=== PATIENT | female | born 1955 | race Caucasian/White ===

== ENCOUNTER → 2017-03-19 | Outpatient (CLI) | payer MEDICAID ==
[~2017-03-19] MED LIST: ASPIRIN81 M1 PO; CIPRO500 MG PO; CIPRO750 MG PO; COMBIVENT1 ARO IH; CORDROL20 MG; DELTASONE20 MG PO; DUONEB 3 MG/3 ML3 M1; HABITROL14 MG/24 H TD; HYCODAN,HYDROME10 ML PO; HYCODAN/HYDROMET5 ML PO; LORTAB 7.5/5001 TA1 PO; PROVENTIL0.09 MG/A1 INH; SYMBICORT1 AER; SYMBICORT1 AER PO; XANAX0.5 MG PO; ZITHROMAX250 MG PO
[2017-03-19 07:34] LABS: BASO # 0.1 10*3/uL (0.0-0.1); BASO % 0.7 % (0.0-1.0); EOS # 0.2 10*3/uL (0.0-0.4); EOS % 3.2 % (1.0-4.0); HEMOGLOBIN 14.6 g/dl (12.0-16.0); LYMPH # 3.2 10*3/uL (1.3-4.4); LYMPH % 44.1 % (27.0-41.0); MEAN CELL VOLUME 93.4 fl (81.0-99.0); MEAN CORPUSCULAR HGB CONC 33.2 g/dl (33.0-37.0); MEAN PLATELET VOLUME 9.8 fl (9.6-12.3); MONO # 0.6 10*3/uL (0.1-1.0); MONO % 7.6 % (3.0-9.0); NEUT # 3.2 10*3/uL (2.3-7.9); NEUT % 44.3 % (47.0-73.0); PLATELET COUNT AUTOMATED 291 10*3/uL (130-400); RED BLOOD COUNT 4.71 10*6/uL (4.10-5.10); RED CELL DISTRI WIDTH 12.1 % (0-14.5); WHITE BLOOD COUNT 7.3 10*3/uL (4.8-10.8)
[2017-03-19 07:42] LABS: ALBUMIN 3.8 gm/dl (3.1-4.5); ALKALINE PHOSPHATASE 121 U/L (45-117); BILIRUBIN, TOTAL 0.3 mg/dl (0.2-1.0); BUN 11 mg/dl (7-24); CARBON DIOXIDE 27 mmol/L (21-32); CHLORIDE 108 mmol/L (98-107); CHOLESTEROL 228 mg/dL (<200); EST GLOM FILT AFRICAN AMERICAN > 60 ml/min; GLUCOSE 105 mg/dL (65-99); HDL CHOLESTEROL 49 mg/dl (40-60); LDL CHOLESTEROL 144 mg/dL (9-159); SGOT/AST 21 IU/L (3-35); SGPT/ALT 34 U/L (12-78); SODIUM 142 mmol/L (136-145); TOTAL PROTEIN 7.1 gm/dL (6.4-8.2); TRIGLYCERIDES 177 mg/dl (<150); VLDL CHOLESTEROL 35 mg/dL (6-40)
[2017-03-19 07:44] LABS: FREE T4 0.95 ng/dl (0.76-1.46)
[2017-03-19 08:50] LABS: FOLIC ACID 17.43 ng/mL (>5.38); VITAMIN D, 25-HYDROXY 42.3 ng/mL (30-100)
== END | disposition home or self-care (01) ==
LOC: LAB 06:58
PROVIDERS: Internal Medicine
DX: J44.9 Chronic obstructive pulmonary disease, unspecified (principal); R73.9 Hyperglycemia, unspecified; M54.5 Low back pain; R52 Pain, unspecified; M47.816 Spondylosis without myelopathy or radiculopathy, lumbar region; J43.1 Panlobular emphysema; I10 Essential (primary) hypertension; R63.8 Other symptoms and signs concerning food and fluid intake; F41.1 Generalized anxiety disorder; M54.2 Cervicalgia; M79.609 Pain in unspecified limb; J20.9 Acute bronchitis, unspecified

== ENCOUNTER → 2017-11-27 | Outpatient (CLI) | payer OTHER ==
[2017-11-27 10:21] LABS: CREATININE 0.92 mg/dL (0.55-1.02)
== END | disposition home or self-care (01) ==
LOC: MRI 08:00 → LAB 08:00 → MRI 10:00
PROVIDERS: Radiology Diagnostic Radiology
DX: I65.23 Occlusion and stenosis of bilateral carotid arteries (principal); H70.91 Unspecified mastoiditis, right ear; R26.9 Unspecified abnormalities of gait and mobility; Z91.81 History of falling

== ENCOUNTER 2017-12-04 10:27 | Emergency (ER) | payer OTHER ==
[~2017-12-04] VITALS: Wt 99.8 kg
[2017-12-04 11:38] LABS: BASO % 0.1 % (0.0-1.0); EOS # 0.2 10*3/uL (0.0-0.4); EOS % 1.6 % (1.0-4.0); HEMATOCRIT 44.1 % (37.0-47.0); HEMOGLOBIN 14.8 g/dl (12.0-16.0); LYMPH # 3.7 10*3/uL (1.3-4.4); LYMPH % 33.6 % (27.0-41.0); MEAN CELL VOLUME 93.6 fl (81.0-99.0); MEAN CORPUSCULAR HGB 31.4 pg (27.0-31.0); MEAN CORPUSCULAR HGB CONC 33.6 g/dl (33.0-37.0); MEAN PLATELET VOLUME 9.9 fl (9.6-12.3); MONO # 0.8 10*3/uL (0.1-1.0); MONO % 7.1 % (3.0-9.0); NEUT # 6.3 10*3/uL (2.3-7.9); NEUT % 57.3 % (47.0-73.0); PLATELET COUNT AUTOMATED 330 10*3/uL (130-400); RED BLOOD COUNT 4.71 10*6/uL (4.10-5.10); RED CELL DISTRI WIDTH 12.2 % (0-14.5)
[2017-12-04 11:46] LABS: ACT PARTIAL THROMBO TIME 25.1 SECONDS (20.8-31.5)
[2017-12-04 11:54] LABS: ALBUMIN 3.7 gm/dl (3.1-4.5); ALKALINE PHOSPHATASE 126 U/L (45-117); BUN 8 mg/dl (7-24); CHLORIDE 108 mmol/L (98-107); CREATININE 0.82 mg/dL (0.55-1.02); LIPASE 107 U/L (73-393); POTASSIUM 3.5 mmol/L (3.5-5.1); SGOT/AST 13 IU/L (3-35); SGPT/ALT 27 U/L (12-78); SODIUM 140 mmol/L (136-145); TOTAL PROTEIN 7.1 gm/dL (6.4-8.2)
[2017-12-04 12:28] LABS: BILIRUBIN NEGATIVE (NEGATIVE); BLOOD TRACE-LYSED (NEGATIVE); CLARITY SL CLOUDY (CLEAR); COLOR YELLOW (YELLOW); GLUCOSE NEGATIVE (NEGATIVE); KETONE NEGATIVE (NEGATIVE); LEUKO ESTERASE NEGATIVE (NEGATIVE); NITRITE NEGATIVE (NEGATIVE); PH 6.5 (5.0-9.0); SPECIFIC GRAVITY <= 1.005 (1.005-1.030); UROBILINOGEN 0.2 E.U./dl (0.2-1.0)
[2017-12-04 12:37] LABS: BACTERIA 2+; EPITHELIAL CELLS 16-20; RBC 0-2 rbc/hpf (0-2); WBC 0-2 wbc/hpf (0-5)
[2017-12-04] MEDS ORDERED: CLINDAMYCIN150 MG PO (13:28)
[2017-12-04] MEDS ORDERED: CEFPODOXIME PR200 M1 PO (13:28)
== END 2017-12-04 13:27 | disposition home or self-care (01) ==
LOC: ED 10:27
PROVIDERS: Student in an Organized Health Care Education/Training Program
DX: R19.7 Diarrhea, unspecified (principal); F17.200 Nicotine dependence, unspecified, uncomplicated; Z98.51 Tubal ligation status; Z87.01 Personal history of pneumonia (recurrent); Z79.82 Long term (current) use of aspirin; Z79.899 Other long term (current) drug therapy; Z91.040 Latex allergy status

== ENCOUNTER → 2018-01-15 | Outpatient (CLI) | payer OTHER ==
[~2018-01-15] MED LIST changes: +CEFPODOXIME PR200 M1 PO; +CLINDAMYCIN150 MG PO
[2018-01-15 10:28] LABS: ALBUMIN 3.9 gm/dl (3.1-4.5); ALKALINE PHOSPHATASE 133 U/L (45-117); BUN 10 mg/dl (7-24); CHLORIDE 110 mmol/L (98-107); POTASSIUM 4.1 mmol/L (3.5-5.1); SGOT/AST 29 IU/L (3-35); SGPT/ALT 45 U/L (12-78); SODIUM 141 mmol/L (136-145); TOTAL PROTEIN 7.5 gm/dL (6.4-8.2)
== END | disposition home or self-care (01) ==
LOC: LAB 07:47 → MRI 08:00
PROVIDERS: Psychiatry & Neurology Neurology
DX: M47.892 Other spondylosis, cervical region (principal); M48.02 Spinal stenosis, cervical region; M48.8X2 Other specified spondylopathies, cervical region; R20.9 Unspecified disturbances of skin sensation; R26.9 Unspecified abnormalities of gait and mobility; R25.2 Cramp and spasm; R32 Unspecified urinary incontinence; R15.9 Full incontinence of feces

== ENCOUNTER → 2019-07-14 | Outpatient (CLI) | payer OTHER ==
[2019-07-14 13:48] LABS: BASO % 0.4 % (0.0-1.0); EOS # 0.2 10*3/uL (0.0-0.4); EOS % 2.5 % (1.0-4.0); HEMOGLOBIN 14.5 g/dl (12.0-16.0); LYMPH # 2.9 10*3/uL (1.3-4.4); LYMPH % 40.1 % (27.0-41.0); MEAN CELL VOLUME 94.6 fl (81.0-99.0); MEAN CORPUSCULAR HGB 31.2 pg (27.0-31.0); MEAN PLATELET VOLUME 9.9 fl (9.6-12.3); MONO # 0.6 10*3/uL (0.1-1.0); MONO % 8.2 % (3.0-9.0); NEUT # 3.6 10*3/uL (2.3-7.9); NEUT % 48.7 % (47.0-73.0); PLATELET COUNT AUTOMATED 282 10*3/uL (130-400); RED BLOOD COUNT 4.65 10*6/uL (4.10-5.10); WHITE BLOOD COUNT 7.3 10*3/uL (4.8-10.8)
[2019-07-14 14:24] LABS: ALBUMIN 3.8 gm/dl (3.1-4.5); ALKALINE PHOSPHATASE 147 U/L (45-117); BUN 8 mg/dl (7-24); CHLORIDE 109 mmol/L (98-107); CHOLESTEROL 261 mg/dL (<200); CREATININE 0.92 mg/dL (0.55-1.02); FREE T4 0.85 ng/dl (0.76-1.46); HDL CHOLESTEROL 41 mg/dl (40-60); LDL CHOLESTEROL 164 mg/dL (9-159); SGOT/AST 25 IU/L (3-35); SGPT/ALT 38 U/L (12-78); SODIUM 141 mmol/L (136-145); T3 UPTAKE 29 % (31-39); THYROXINE (T4) TOTAL 9.4 ug/dl (4.8-13.9); TOTAL PROTEIN 7.3 gm/dL (6.4-8.2); TRIGLYCERIDES 282 mg/dl (<150); VLDL CHOLESTEROL 56 mg/dL (6-40)
[2019-07-14 15:18] LABS: VITAMIN D, 25-HYDROXY 23.5 ng/mL (30-100)
[2019-07-18 12:07] LABS: METHYLMALONIC ACID 100 nmol/L (0-378)
== END | disposition home or self-care (01) ==
LOC: LAB 13:20
PROVIDERS: Internal Medicine
DX: Z00.00 Encounter for general adult medical examination without abnormal findings (principal); E78.2 Mixed hyperlipidemia; I10 Essential (primary) hypertension; E55.9 Vitamin D deficiency, unspecified; G25.9 Extrapyramidal and movement disorder, unspecified

== ENCOUNTER → 2020-04-06 | Outpatient (CLI) | payer MEDICARE ==
[2020-04-06 12:32] LABS: BASO % 0.6 % (0.0-1.0); EOS # 0.3 10*3/uL (0.0-0.4); EOS % 3.6 % (1.0-4.0); HEMATOCRIT 41.7 % (37.0-47.0); LYMPH % 42.2 % (27.0-41.0); MEAN CELL VOLUME 94.3 fl (81.0-99.0); MEAN CORPUSCULAR HGB 31.2 pg (27.0-31.0); MEAN CORPUSCULAR HGB CONC 33.1 g/dl (33.0-37.0); MEAN PLATELET VOLUME 9.7 fl (9.6-12.3); MONO # 0.8 10*3/uL (0.1-1.0); MONO % 10.7 % (3.0-9.0); NEUT % 42.8 % (47.0-73.0); PLATELET COUNT AUTOMATED 290 10*3/uL (130-400); RED BLOOD COUNT 4.42 10*6/uL (4.10-5.10)
[2020-04-06 13:06] LABS: ALBUMIN 3.6 gm/dl (3.1-4.5); ALKALINE PHOSPHATASE 108 U/L (45-117); BUN 13 mg/dl (7-24); CHLORIDE 111 mmol/L (98-107); CHOLESTEROL 268 mg/dL (<200); CREATININE 0.97 mg/dL (0.55-1.02); FREE T4 0.98 ng/dl (0.76-1.46); HDL CHOLESTEROL 49 mg/dl (40-60); LDL CHOLESTEROL 170 mg/dL (9-159); POTASSIUM 3.9 mmol/L (3.5-5.1); SGOT/AST 21 IU/L (3-35); SGPT/ALT 36 U/L (12-78); SODIUM 141 mmol/L (136-145); TOTAL PROTEIN 7.2 gm/dL (6.4-8.2); TRIGLYCERIDES 243 mg/dl (<150); VLDL CHOLESTEROL 49 mg/dL (6-40)
[2020-04-06 13:26] LABS: VITAMIN D, 25-HYDROXY 28.4 ng/mL (30-100)
== END | disposition home or self-care (01) ==
LOC: LAB 12:04
PROVIDERS: Internal Medicine
DX: Z00.00 Encounter for general adult medical examination without abnormal findings (principal); Z13.1 Encounter for screening for diabetes mellitus; Z13.220 Encounter for screening for lipoid disorders; J44.9 Chronic obstructive pulmonary disease, unspecified; I10 Essential (primary) hypertension; E03.9 Hypothyroidism, unspecified; E55.9 Vitamin D deficiency, unspecified

== ENCOUNTER → 2020-05-28 | Outpatient (CLI) | payer MEDICARE | END | disposition home or self-care (01) | LOC: MRI 13:28 | DX: J32.0 Chronic maxillary sinusitis (principal); H74.8X2 Other specified disorders of left middle ear and mastoid ==

== ENCOUNTER → 2021-01-02 | Outpatient (CLI) | payer MEDICARE | END | disposition home or self-care (01) | LOC: COVID19 11:14 | PROVIDERS: ATTEND Internal Medicine | DX: Z20.822 Contact with and (suspected) exposure to COVID-19 (principal) ==

== ENCOUNTER → 2021-01-24 | Outpatient (CLI) | payer MEDICARE | END | disposition home or self-care (01) | LOC: RAD 12:56 | PROVIDERS: ATTEND Internal Medicine | DX: M25.462 Effusion, left knee (principal); M25.862 Other specified joint disorders, left knee ==

== ENCOUNTER → 2021-03-13 | Outpatient (CLI) | payer MEDICARE ==
[2021-03-13 12:08] LABS: BASO % 0.5 % (0.0-1.0); EOS # 0.1 10*3/uL (0.0-0.4); EOS % 1.7 % (1.0-4.0); HEMATOCRIT 43.3 % (37.0-47.0); LYMPH # 2.7 10*3/uL (1.3-4.4); LYMPH % 42.8 % (27.0-41.0); MEAN CELL VOLUME 94.5 fl (81.0-99.0); MEAN CORPUSCULAR HGB CONC 32.8 g/dl (33.0-37.0); MEAN PLATELET VOLUME 9.9 fl (9.6-12.3); MONO # 0.5 10*3/uL (0.1-1.0); MONO % 8.2 % (3.0-9.0); NEUT % 46.6 % (47.0-73.0); PLATELET COUNT AUTOMATED 299 10*3/uL (130-400); RED BLOOD COUNT 4.58 10*6/uL (4.10-5.10); RED CELL DISTRI WIDTH 12.3 % (0-14.5); WHITE BLOOD COUNT 6.3 10*3/uL (4.8-10.8)
[2021-03-13 12:45] LABS: CHLORIDE 107 mmol/L (98-107); POTASSIUM 3.8 mmol/L (3.5-5.1); SODIUM 140 mmol/L (136-145)
[2021-03-13 12:51] LABS: VITAMIN D, 25-HYDROXY 28.4 ng/mL (30-100)
[2021-03-13 13:10] LABS: ALBUMIN 3.9 gm/dl (3.1-4.5); ALKALINE PHOSPHATASE 108 U/L (45-117); BUN 10 mg/dl (7-24); CHOLESTEROL 192 mg/dL (<200); CREATININE 1.04 mg/dL (0.55-1.02); FREE T4 1.07 ng/dl (0.76-1.46); LDL CHOLESTEROL 99 mg/dL (9-159); SGOT/AST 22 IU/L (3-35); SGPT/ALT 48 U/L (12-78); TOTAL PROTEIN 7.3 gm/dL (6.4-8.2); TRIGLYCERIDES 191 mg/dl (<150)
== END | disposition home or self-care (01) ==
LOC: LAB 11:25
PROVIDERS: ATTEND Internal Medicine
DX: I10 Essential (primary) hypertension (principal); R53.83 Other fatigue; E03.9 Hypothyroidism, unspecified; E55.9 Vitamin D deficiency, unspecified; E78.2 Mixed hyperlipidemia; R73.9 Hyperglycemia, unspecified; Z00.01 Encounter for general adult medical examination with abnormal findings

== ENCOUNTER 2021-06-18 16:44 | Emergency (ER) | payer MEDICARE ==
[~2021-06-18] VITALS: Ht 175.2 cm; Wt 1143.1 kg
[2021-06-18 18:16] LABS: BASO % 0.4 % (0.0-1.0); EOS # 0.3 10*3/uL (0.0-0.4); EOS % 4.1 % (1.0-4.0); HEMATOCRIT 40.3 % (37.0-47.0); LYMPH # 2.7 10*3/uL (1.3-4.4); LYMPH % 39.7 % (27.0-41.0); MEAN CELL VOLUME 94.2 fl (81.0-99.0); MEAN CORPUSCULAR HGB 31.3 pg (27.0-31.0); MEAN CORPUSCULAR HGB CONC 33.3 g/dl (33.0-37.0); MEAN PLATELET VOLUME 9.7 fl (9.6-12.3); MONO # 0.7 10*3/uL (0.1-1.0); MONO % 9.7 % (3.0-9.0); NEUT # 3.2 10*3/uL (2.3-7.9); PLATELET COUNT AUTOMATED 284 10*3/uL (130-400); RED BLOOD COUNT 4.28 10*6/uL (4.10-5.10); RED CELL DISTRI WIDTH 11.9 % (0-14.5); WHITE BLOOD COUNT 6.9 10*3/uL (4.8-10.8)
[2021-06-18 18:32] LABS: ALBUMIN 3.6 gm/dl (3.1-4.5); ALKALINE PHOSPHATASE 104 U/L (45-117); BUN 9 mg/dl (7-24); CHLORIDE 107 mmol/L (98-107); CREATININE 0.89 mg/dL (0.55-1.02); LIPASE 124 U/L (73-393); POTASSIUM 3.5 mmol/L (3.5-5.1); SGOT/AST 21 IU/L (3-35); SGPT/ALT 32 U/L (12-78); SODIUM 139 mmol/L (136-145); TOTAL PROTEIN 7.1 gm/dL (6.4-8.2)
[2021-06-18 18:37] LABS: TROPONIN I < 0.015 ng/ml (<0.045)
[2021-06-18 19:27] LABS: BILIRUBIN Negative (Negative); BLOOD Negative (Negative); CLARITY Clear (Clear); COLOR Yellow (Yellow); GLUCOSE Negative (Negative); KETONE Negative (Negative); LEUKO ESTERASE Trace (Negative); NITRITE Negative (Negative)
[2021-06-18 19:44] LABS: BACTERIA 2+
== END 2021-06-18 22:46 | disposition home or self-care (01) ==
LOC: ED 16:44
PROVIDERS: Physician Assistant
DX: R60.0 Localized edema (principal); R06.09 Other forms of dyspnea; R06.02 Shortness of breath; R07.9 Chest pain, unspecified; Z91.040 Latex allergy status; Z79.82 Long term (current) use of aspirin

== ENCOUNTER → 2021-06-27 | Outpatient (CLI) | payer MEDICARE | END | disposition home or self-care (01) | LOC: CARD 00:23 | PROVIDERS: ATTEND Internal Medicine | DX: R06.02 Shortness of breath (principal); R60.0 Localized edema; F17.210 Nicotine dependence, cigarettes, uncomplicated ==

== ENCOUNTER → 2022-05-20 | Outpatient (CLI) | payer MEDICARE ==
[2022-05-20 16:28] LABS: BASO % 0.4 % (0.0-1.0); EOS # 0.1 10*3/uL (0.0-0.4); EOS % 1.7 % (1.0-4.0); HEMATOCRIT 41.7 % (37.0-47.0); MEAN CELL VOLUME 93.7 fl (81.0-99.0); MEAN CORPUSCULAR HGB 31.7 pg (27.0-31.0); MEAN CORPUSCULAR HGB CONC 33.8 g/dl (33.0-37.0); MONO # 0.7 10*3/uL (0.1-1.0); MONO % 13.4 % (3.0-9.0); NEUT # 3.5 10*3/uL (2.3-7.9); NEUT % 66.1 % (47.0-73.0); PLATELET COUNT AUTOMATED 269 10*3/uL (130-400); RED BLOOD COUNT 4.45 10*6/uL (4.10-5.10); RED CELL DISTRI WIDTH 12.2 % (0-14.5); WHITE BLOOD COUNT 5.3 10*3/uL (4.8-10.8)
[2022-05-20 17:06] LABS: ALKALINE PHOSPHATASE 125 U/L (45-117); BUN 11 mg/dl (7-24); CHLORIDE 111 mmol/L (98-107); CHOLESTEROL 212 mg/dL (<200); CREATININE 1.03 mg/dL (0.55-1.02); POTASSIUM 4.2 mmol/L (3.5-5.1); SGOT/AST 42 IU/L (3-35); SGPT/ALT 43 U/L (12-78); SODIUM 141 mmol/L (136-145); TRIGLYCERIDES 216 mg/dl (<150)
[2022-05-20 17:07] LABS: FREE T4 0.99 ng/dl (0.76-1.46); LDL CHOLESTEROL 109 mg/dL (9-159)
[2022-05-20 17:17] LABS: VITAMIN D, 25-HYDROXY 24.4 ng/mL (30-100)
== END ==
LOC: LAB 15:49
PROVIDERS: ATTEND Internal Medicine
DX: E55.9 Vitamin D deficiency, unspecified (principal); R79.89 Other specified abnormal findings of blood chemistry; D51.9 Vitamin B12 deficiency anemia, unspecified; E03.9 Hypothyroidism, unspecified; D52.9 Folate deficiency anemia, unspecified; Z13.0 Encounter for screening for diseases of the blood and blood-forming organs and certain disorders involving the immune mechanism; Z13.1 Encounter for screening for diabetes mellitus; Z13.21 Encounter for screening for nutritional disorder; Z13.220 Encounter for screening for lipoid disorders; Z13.228 Encounter for screening for other metabolic disorders; Z13.6 Encounter for screening for cardiovascular disorders; Z13.89 Encounter for screening for other disorder

== ENCOUNTER → 2023-07-17 | Outpatient (CLI) | payer MEDICARE | END | disposition home or self-care (01) | LOC: RAD 00:54 | PROVIDERS: ATTEND Internal Medicine | DX: Z13.820 Encounter for screening for osteoporosis (principal); Z78.0 Asymptomatic menopausal state ==

== ENCOUNTER → 2023-10-13 | Outpatient (CLI) | payer MEDICARE | END | disposition home or self-care (01) | LOC: CARD 00:27 | PROVIDERS: ATTEND Internal Medicine | DX: R06.02 Shortness of breath (principal) ==

== ENCOUNTER → 2024-03-04 | Outpatient (CLI) | payer MEDICARE ==
[2024-03-04 11:51] LABS: BASO % 0.3 % (0.0-1.0); EOS # 0.1 10*3/uL (0.0-0.4); EOS % 2.1 % (1.0-4.0); HEMATOCRIT 43.6 % (37.0-47.0); LYMPH # 2.4 10*3/uL (1.3-4.4); LYMPH % 40.7 % (27.0-41.0); MEAN CELL VOLUME 95.2 fl (81.0-99.0); MEAN CORPUSCULAR HGB 30.3 pg (27.0-31.0); MEAN CORPUSCULAR HGB CONC 31.9 g/dl (33.0-37.0); MEAN PLATELET VOLUME 9.3 fl (9.6-12.3); MONO # 0.5 10*3/uL (0.1-1.0); MONO % 9.3 % (3.0-9.0); NEUT # 2.7 10*3/uL (2.3-7.9); NEUT % 47.4 % (47.0-73.0); PLATELET COUNT AUTOMATED 272 10*3/uL (130-400); RED BLOOD COUNT 4.58 10*6/uL (4.10-5.10); RED CELL DISTRI WIDTH 11.9 % (0-14.5); WHITE BLOOD COUNT 5.8 10*3/uL (4.8-10.8)
[2024-03-04 13:07] LABS: ALKALINE PHOSPHATASE 123 U/L (46-116); BUN 11 mg/dl (9-23); CHLORIDE 106 mmol/L (98-107); CHOLESTEROL 228 mg/dL (<200); FREE T4 0.95 ng/dl (0.89-1.76); LDL CHOLESTEROL 147 mg/dL (9-159); POTASSIUM 4.4 mmol/L (3.4-5.1); SGPT/ALT 23 U/L (5-49); TOTAL PROTEIN 7.2 gm/dL (6.0-8.0); TRIGLYCERIDES 168 mg/dl (<150); VITAMIN D, 25-HYDROXY 32.8 ng/mL (30-100)
== END | disposition home or self-care (01) ==
LOC: LAB 11:31
PROVIDERS: ATTEND Internal Medicine
DX: I25.10 Atherosclerotic heart disease of native coronary artery without angina pectoris (principal); M48.062 Spinal stenosis, lumbar region with neurogenic claudication; M25.561 Pain in right knee

== ENCOUNTER → 2024-06-30 | Outpatient (CLI) | payer MEDICARE | END | disposition home or self-care (01) | LOC: MRI 01:00 | PROVIDERS: ATTEND Internal Medicine | DX: R90.82 White matter disease, unspecified (principal); R13.12 Dysphagia, oropharyngeal phase ==

== ENCOUNTER → 2025-05-18 | Outpatient (CLI) | payer MEDICARE ==
[2025-05-18 10:57] LABS: BASO # 0.0 10*3/uL (0.0-0.1); BASO % 0.4 % (0.0-1.0); EOS # 0.1 10*3/uL (0.0-0.4); EOS % 1.8 % (1.0-4.0); MEAN CELL VOLUME 95.1 fl (81.0-99.0); MEAN CORPUSCULAR HGB 31.5 pg (27.0-31.0); MEAN PLATELET VOLUME 9.3 fl (9.6-12.3); MONO # 0.6 10*3/uL (0.1-1.0); MONO % 11.1 % (3.0-9.0); NEUT # 2.7 10*3/uL (2.3-7.9); NEUT % 53.6 % (47.0-73.0); NUCLEATED RED BLOOD CELL 0.0 % (0.0-0.0); NUCLEATED RED BLOOD CELL 0.0 10*3/uL (0.0-0.0); PLATELET COUNT AUTOMATED 280 10*3/uL (130-400); RED CELL DISTRI WIDTH 12.0 % (0-14.5)
[2025-05-18 11:48] LABS: CPK 65.0 U/L (34-171); SGPT/ALT 21.0 U/L (5-49)
[2025-05-18 11:51] LABS: BUN 13 mg/dl (9-23); FREE T4 1.30 ng/dl (0.89-1.76); LDL CHOLESTEROL 92 mg/dL (9-159); SGPT/ALT 21 U/L (5-49); VITAMIN D, 25-HYDROXY 49.0 ng/mL (30-100)
[2025-05-19 13:07] LABS: ALDOLASE 3.3 U/L (3.3-10.3)
== END | disposition home or self-care (01) ==
LOC: LAB 10:14
PROVIDERS: Internal Medicine; ATTEND Psychiatry & Neurology Neurology
DX: R06.02 Shortness of breath (principal); J44.0 Chronic obstructive pulmonary disease with (acute) lower respiratory infection; J43.1 Panlobular emphysema; G25.9 Extrapyramidal and movement disorder, unspecified; R73.09 Other abnormal glucose